=== PATIENT | male | born 1980 | race African-American/Black ===

== ENCOUNTER 2020-06-15 07:35 | Emergency (ER) | payer SELFPAY ==
[~2020-06-15] VITALS: Ht 180.3 cm; Wt 108.5 kg
--- NOTE | 2020-06-15 08:46 | Diagnostic Imaging Report ---
EXAM: CXR 1 VIEW - [facility] DATE: 06/15/2020 8:27 AM INDICATION: Chest pain COMPARISON: None FINDINGS: The trachea is midline. The lungs are symmetrically expanded without evidence for large focal consolidation, pneumothorax, or significant pleural effusion. The cardiomediastinal silhouette and pulmonary vasculature are within normal limits. No acute osseous abnormality is identified. The surrounding soft tissues are unremarkable. IMPRESSION: No acute cardiopulmonary process identified. Signed by: Dr. Thor Dyson MD on 06/15/2020 8:43 AM
--- NOTE | 2020-06-15 09:17 | Emergency Department Note ---
History of Present Illnes History of Present Illness Chief Complaint: COVID PUI History of Present Illness This is a 40 year old male Chief Complaint Comment Reports that he has had a headache for last 2 weeks with fatigue and body aches. States that for 2 months he has felt heart fluttering and palpitations in his heart that is more painful and constant now that he cannot ignore any more so he decided to get it checked out. . Historian: Patient Arrival Mode: Car Onset (how long ago): day(s) (1) Location: chest pain Quality: dull Radiation: Denies non-radiation, Denies back, Denies neck, Denies extremity, Denies abdomen, Denies periumbilical, Denies flank, Denies proximal, Denies distal, Denies other Severity: mild Onset quality: gradual Duration (how long): day(s) (1) Timing of current episode: intermittent Progression: waxing and waning Chronicity: new Context: Denies recent illness, Denies recent surgery, Denies recent immobilization, Denies recent travel, Denies trauma/injury, Denies new medications, Denies hx of DVT/PE, Denies non-compliance w/ medications, Denies other Relieving factors: none Exacerbating factors: none Associated symptoms: Reports denies other symptoms Treatments prior to arrival: none Past Medical/Family History Physician Review I have reviewed the patient's past medical and family history. Any updates have been documented here. 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 in [id number] Past Surgical History: None Social History Smoking Cessation: Current every day smoker Alcohol Use: Occasional Any Illegal Drug Use: No Physically hurt or threatened: No Other Any Pre-Existing Lines (PICC,: No Review of Systems Review of Systems Constitutional: Reports no symptoms EENTM: Reports no symptoms Cardiovascular: Reports as per HPI Respiratory: Reports no symptoms Gastrointestinal: Reports no symptoms Genitourinary: Reports no symptoms Musculoskeletal: Reports no symptoms Integumentary: Reports no symptoms Neurological: Reports no symptoms Psychological: Reports no symptoms Endocrine: Reports no symptoms Hematological/Lymphatic: Reports no symptoms Physical Exam Related Data Allergies: Coded Allergies: haloperidol (Verified Allergy, Severe, [place] jaw, 06/15/20) Triage Vital Signs Vital Signs Date Time Temp Pulse Resp B/P (MAP) Pulse Ox O2 Delivery O2 Flow Rate FiO2 06/15/20 07:50 98.2 76 18 144/70 97 Room Air Vital signs reviewed: Yes Physical Exam CONSTITUTIONAL Constitutional: Present well-developed, Present well-nourished HENT HENT: Present normocephalic, Present atraumatic, Present oropharynx clear/moist, Present nose normal HENT L/R: Present left ext ear normal, Present right ext ear normal EYES Eyes: Reports PERRL, Reports conjunctivae normal NECK Neck: Present ROM normal PULMONARY Pulmonary: Present effort normal, Present breath sounds normal CARDIOVASCULAR Cardiovascular: Present regular rhythm, Present heart sounds normal, Present capillary refill normal, Present normal rate GASTROINTESTINAL Abdominal: Present soft, Present nontender, Present bowel sounds normal GENITOURINARY Genitourinary: Present exam deferred SKIN Skin: Present warm, Present dry MUSCULOSKELETAL Musculoskeletal: Present ROM normal NEUROLOGICAL Neurological: Present alert, Present oriented x 3, Present no gross motor or sensory deficits PSYCHOLOGICAL Psychological: Present mood/affect normal, Present judgement normal Results Laboratory Lab results reviewed: Yes Imaging Imaging results reviewed: Yes Procedures 12 Lead ECG Interpretation ECG Interpretation : ECG: ECG 1 Geological Aide: Interpreted by ED physician Date: Jun 15, 2020 Time: 07:53 Rhythm: sinus rhythm Rate: normal BPM: 72 ST segments normal: Yes T waves normal: Yes Assessment & Plan Medical Decision Making MDM chest pain angina Reassessment Reassessment better Assessment & Plan Final Impression: (1) Chest pain (2) Precordial pain Depart Disposition: AGAINST MEDICAL ADVICE Last Vital Signs Date Time Temp Pulse Resp B/P (MAP) Pulse Ox O2 Delivery O2 Flow Rate FiO2 06/15/20 07:50 98.2 76 18 144/70 97 Room Air JOSE VERA MD Jun 15, 2020 09:17
[2020-06-15 09:20] VITALS: BP 130/71
== END 2020-06-15 09:38 | disposition home or self-care (01) ==
LOC: FSED 08:15
DX: R07.2 Precordial pain (principal); R51 Headache; F17.210 Nicotine dependence, cigarettes, uncomplicated
CPT/HCPCS: 71045; 80053; 84484; 85025; 93005; 99284